=== PATIENT | male | born 1955 | race Caucasian/White ===

== ENCOUNTER 2018-08-15 14:51 | Observation (INO) ==
[2018-08-15] MEDS ORDERED: ZOFRAN ODT ONE (15:02)
[2018-08-15] MEDS ORDERED: ASPIRIN PO ONE (15:06)
[2018-08-15] MEDS ORDERED: ZOFRAN ODT PO ONE (15:08)
--- NOTE | 2018-08-15 15:10 | EKG Report ---
Test Performed on : 08/15/2018 3:00:04 PM Test Reason : SYNCOPE Blood Pressure : / mmHG Vent. Rate : 069 BPM Atrial Rate : 069 BPM P-R Int : 230 ms QRS Dur : 096 ms QT Int : 404 ms P-R-T Axes : 035 014 038 degrees QTc Int : 432 ms Sinus rhythm. with 1st degree AV block. Incomplete right bundle branch block Borderline ECG When compared with ECG of 15-APR-2018 19:20, Incomplete right bundle branch block is now present QT has lengthened Unconfirmed Result
[2018-08-15 15:40] LABS: BASO# 0.02 X1000 (0.0-0.2); BASO% 0.3 % (0.0-0.8); EOS# 0.08 X1000 (0.0-0.7); EOS% 1.2 % (0.0-10.0); HEMATOCRIT 42.2 % (42.0-52.0); HEMOGLOBIN 14.5 g/dL (14.0-18.0); LYMPH# 1.89 X1000 (1.2-3.4); LYMPH% 27.5 % (20.5-51.1); MCH 30.7 PG (27-31); MCHC 34.4 g/dL (33-37); MCV 89.4 FL (81-99); MONO# 0.48 X1000 (0.11-0.59); MPV 8.8 FL (7.4-10.4); PLT 206 X1000 (130-400); RBC 4.72 XMIL (4.7-6.1); RDW 11.9 % (11.5-14.5); WBC 6.87 X1000 (4.8-10.8)
[2018-08-15 15:46] LABS: INR 0.94; PROTIME 13.3 Seconds (11.0-16.0); PTT 23.7 Seconds (22.3-41.8)
--- NOTE | 2018-08-15 15:58 | Diag Imaging Result Doc PS360 ---
CHEST-2 VIEWS - 08/15/2018 INDICATION: SYNCOPE COMPARISON: 04/15/2018 FINDINGS: The lungs are normally expanded and clear. Heart size and mediastinal contours are normal. No pneumothorax or pleural effusion. IMPRESSION: Negative exam. Electronically signed by Андрей Kilgore 08/15/2018 3:56 PM
[2018-08-15 16:06] LABS: AGAP 12; ALB/GLOB RATIO 1.6; ALBUMIN 4.3 g/dL (3.5-5.0); ALKALINE PHOSPHATASE 76 U/L (32-122); BUN 13 mg/dL (8-22); CALCIUM 9.8 mg/dL (8.8-10.2); CHLORIDE 105 mmol/L (98-107); CK PROFILE 126 U/L (24-204); COSMO 283; CREATININE 0.8 mg/dL (0.7-1.2); ESTIMATED GFR > 60; GLUCOSE 124 mg/dL (70-104); GOT 19 U/L (10-34); GPT 19 U/L (10-44); POTASSIUM 3.9 mmol/L (3.5-5.1); SODIUM 141 mmol/L (136-145); TCO2 24 mmol/L (25-35); TOTAL BILIRUBIN 0.34 mg/dL (0.20-1.00)
[2018-08-15] MEDS ORDERED: NS 1,000 ML IV ONE (16:40)
--- NOTE | 2018-08-15 18:16 | PROVIDER DOCUMENTATION ---
This chart was entered by Mali Escobedo Scribe, acting as scribe for Ric Villa CRNP. HPI-Syncope/Dizziness - General Chief Complaint: Syncope Stated Complaint: SYNCOPE / SWEATING / SOB Time Seen by Provider: 08/15/18 15:38 Source: patient Allergies/Adverse Reactions: Patient Allergies Allergy/AdvReac Type Severity Reaction Status Date / Time No Known Allergies Allergy Verified 04/15/18 20:26 Home Medications: Home Medication List Medication Instructions Recorded Confirmed Last Taken Type Omeprazole [Prilosec] 20 mg PO DAILY@0700 03/27/17 04/15/18 Unknown History Aspirin 81 mg PO DAILY 04/15/18 04/15/18 Unknown History Meclizine [Antivert] 12.5 mg PO Q8H #10 tab 04/15/18 Unknown Rx - History of Present Illness-Syncope/Dizzy Nature of Presenting Problem: 63 yowm presents to the ed with c/o syncope while at work today. sts when he woke up his tablet was on the floor and he was nauseated, diaphoretic, and has weakness. pt sts had similar episode in March and f/u with cardio. pt had echo and and stress test both were negative. Prior Episodes: reports: remote history (had episode in march as well) Onset/Duration: reports: this afternoon Timing: reports: improving Position/Activity at time of episode: reports: sitting Symptoms prior to episode: reports: nausea/vomiting, diaphoresis. denies: headache, lightheaded, visual disturbance, chest pain, racing heart, abdominal pain, back pain, recent head trauma, rapid heart beat Context: reports: lost consciousness. denies: incontinent of urine, incontinent of stool Loss of Consciousness: prolonged (minutes) (1 minute) Current Symptoms: reports: sweaty, nausea, weakness. denies: short of breath, abdominal pain, vomiting, shoulder pain, headache, blurred vision, lightheaded Similar symptoms previously: reports: workup for same problem Recently Seen Here or By Another Healthcare Provider: No Review of Systems - Adult - REVIEW OF SYSTEMS - ADULT Constitutional: denies: chills, fever Eyes: denies: blurred vision, double vision Ears, Nose, Mouth & Throat: reports: no symptoms reported Cardiovascular: reports: syncope. denies: chest pain, palpitations Respiratory: reports: shortness of breath. denies: cough, wheezing Gastrointestinal: reports: nausea. denies: abdominal pain, diarrhea, vomiting Genitourinary: reports: no symptoms reported Musculoskeletal: reports: see HPI, muscle weakness. denies: back pain, neck pain Integumentary: reports: no symptoms reported Neurological: reports: syncope. denies: dizziness/vertigo, headache/migraines, loss of balance, numbness, paresthesia, slurred speech Psychiatric: reports: no symptoms reported Endocrine: reports: no symptoms reported Hematologic/Lymphatic: reports: no symptoms reported Allergic/Immunologic: reports: no symptoms reported All Other Systems: Reviewed and Negative Past History - Adult - PAST MEDICAL HISTORY-ADULT Review of Records: reports: Old Records Reviewed, Nursing Assessment Review, Medications Reviewed, Social history reviewed & non-contributory. Major Childhood Illnesses: reports: denies history Cardiovascular: reports: denies history Respiratory: reports: denies history Gastrointestinal: reports: denies history Genitourinary: reports: denies history Musculoskeletal: reports: denies history Hand Dominance: Right Handed Neurological: reports: denies history Endocrine/Immune: reports: denies history Other Conditions: reports: denies history - PRIOR SURGERIES/PROCEDURES Surgical/Procedure History: reports: other (sinus sx) - IMMUNIZATION STATUS Childhood Immunizations: See Nurse Assessment Flu Vaccine: See Nurse Assessment - FAMILY HISTORY Family History: reviewed, not pertinent - SOCIAL HISTORY Smoking: denies Substance Use: alcohol Alcohol Use Frequency: occasionally Number of drinks per typical drinking period:: 3-4 drinks Living Situation: family Physical Exam-General - PHYSICAL EXAM-ADULT Initial Vital Signs Reviewed: Yes - CONSTITUTIONAL General Appearance: alert, mild distress. negative: appears well - EYES Eyes: PERRL/EOMI, pale conjunctivae - HEAD, EARS, NOSE, MOUTH & THROAT HENMT: moist mucous membranes, normal ENT inspection - NECK Neck: full range of motion, supple, normal inspection - RESPIRATORY Respiratory: chest non-tender, lungs clear, normal breath sounds - CARDIOVASCULAR Cardiovascular: normal peripheral pulses, regular rate, rhythm - GASTROINTESTINAL (ABDOMEN) Abdominal Exam: normal bowel sounds, non tender, soft - LYMPHATIC Lymphatic: no adenopathy - MUSCULOSKELETAL Back Exam: normal inspection, no CVA tenderness, no vertebral tenderness Extremity: normal range of motion, normal gait, normal inspection, no pedal edema, no calf tenderness, normal capillary refill - SKIN Integumentary: normal turgor, diaphoresis, pallor - NEUROLOGIC Neurologic: grossly normal, no motor/sensory deficits - PSYCHIATRIC Psych/Mental Status: normal mood/affect, normal thought content, normal thought process, oriented x 3 Progress - PLAN OF CARE/RESULTS Progress/Plan/Lab Results: Vital Signs - 8 hr 08/15/18 14:56 08/15/18 16:15 Temperature 97.5 F L Pulse Rate 74 Pulse Rate [Sitting] 67 Pulse Rate [Standing] 75 Pulse Rate [Supine] 65 Respiratory Rate 18 Blood Pressure 131/86 Blood Pressure [Sitting] 157/103 Blood Pressure [Standing] 142/92 Blood Pressure [Supine] 147/80 O2 Sat by Pulse Oximetry 96 Laboratory Results - last 24 hr 08/15/18 08/15/18 08/15/18 15:10 15:10 15:10 WBC 6.87 RBC 4.72 Hgb 14.5 Hct 42.2 MCV 89.4 MCH 30.7 MCHC 34.4 RDW Std Deviation 11.9 Plt Count 206 MPV 8.8 Immature Gran % (Auto) 0.0 Neut % (Auto) 64.0 Lymph % (Auto) 27.5 [place] % (Auto) 7.0 Eos % (Auto) 1.2 Baso % (Auto) 0.3 Immature Gran # (Auto) 0.00 Neut # (Auto) 4.40 Lymph # (Auto) 1.89 [place] # (Auto) 0.48 Eos # (Auto) 0.08 Baso # (Auto) 0.02 PT INR PTT (Actin FS) D-Dimer, Quantitative Sodium 141 Potassium 3.9 Chloride 105 Carbon Dioxide 24 L Anion Gap 12 BUN 13 Creatinine 0.8 Estimated GFR/1.73 m2 > 60 BUN/Creatinine Ratio 16 Glucose 124 H Calculated Osmolality 283 Calcium 9.8 Total Bilirubin 0.34 AST 19 ALT 19 Alkaline Phosphatase 76 Creatine Kinase 126 Troponin T Btk-Z-Swoxbudmhtc Pept 9 Total Protein 7.0 Albumin 4.3 Globulin 2.7 Albumin/Globulin Ratio 1.6 08/15/18 08/15/18 08/15/18 15:10 15:10 15:10 WBC RBC Hgb Hct MCV MCH MCHC RDW Std Deviation Plt Count MPV Immature Gran % (Auto) Neut % (Auto) Lymph % (Auto) [place] % (Auto) Eos % (Auto) Baso % (Auto) Immature Gran # (Auto) Neut # (Auto) Lymph # (Auto) [place] # (Auto) Eos # (Auto) Baso # (Auto) PT 13.3 INR 0.94 PTT (Actin FS) 23.7 D-Dimer, Quantitative 0.41 Sodium Potassium Chloride Carbon Dioxide Anion Gap BUN Creatinine Estimated GFR/1.73 m2 BUN/Creatinine Ratio Glucose Calculated Osmolality Calcium Total Bilirubin AST ALT Alkaline Phosphatase Creatine Kinase Troponin T < 0.010 Bve-P-Uhyrmrrituj Pept Total Protein Albumin Globulin Albumin/Globulin Ratio Orders Category Date Time Status Cardiac Monitoring DIRECTED Care 08/15/18 15:07 Active Oxygen Therapy- ED Nursing DIRECTED Care 08/15/18 15:07 Active Saline Loc NOW Care 08/15/18 15:07 Active CHEST-2 VIEWS [RAD] Stat Exams 08/15/18 15:07 Completed CBC WITH ELECTRONIC DIFF [HEME] Stat Lab 08/15/18 15:10 Completed CK PROFILE [SP CHEM] Stat Lab 08/15/18 15:10 Completed COMPREHENSIVE METABOLIC PANEL [CHEM] Stat Lab 08/15/18 15:10 Completed D-DIMER [COAG] Stat Lab 08/15/18 15:10 Completed PRO B-NATRIURETIC PEPTIDE Stat Lab 08/15/18 15:10 Completed PROTIME WITH INR [COAG] Stat Lab 08/15/18 15:10 Completed PTT [COAG] Stat Lab 08/15/18 15:10 Completed TROPONIN T Stat Lab 08/15/18 15:10 Completed 0.9% Sodium Chloride Inj [Ns] 1,000 ml Med 08/15/18 16:40 Discontinued IV 999 mls/hr Aspirin Med 08/15/18 15:06 Discontinued 325 mg PO NOW ONE Ondansetron Odt [Zofran Odt] Med 08/15/18 15:02 Discontinued 4 mg .ROUTE .STK-MED ONE Ondansetron Odt [Zofran Odt] Med 08/15/18 15:08 Discontinued 4 mg PO NOW ONE CP/SOB/Palp >45 yrs of Age Stat Oth 08/15/18 15:06 Ordered EKG [EKG] Stat Ther 08/15/18 15:07 Draft Result Diagrams: 08/15/18 15:10 08/15/18 15:10 - REASSESSMENT Reassessment #1 Time Reassessed: 16:42 (In room to discussed results and consult with Dr Gayle. Pt states he has a flush feeling, HR decrease from 68 to 48bpm while in room. ) Reassessment #2 Time Reassessed: 16:53 (Dr Allan and myself in room to reassess pt. Dr Janet Gayle in [facility]. Dr Allan and myself spoke with Dr Gayle explained bradycardia event. States he feels like pt is ok to d/c home and he will see pt in the office. Pt and family made aware of this. ) Reassessment #3 Time Reassessed: 17:45 (spoke with Dr Allan regarding neg d-dimer. Suggests calling hospitalist for admission. Pt states they do not feel comfortable with pt going home.) Reassessment #4 Time Reassessed: 18:16 (pt and fmaily updated on admission status. Agree with plan.) - EKG 1 Time of EKG reading by physician:: 15:00 EKG Read and Signed by:: Chuy Allan EKG Interpretation (*Must complete 3 of following elements*): Normal (borderline ) Rate: 69 Rhythm: inus rhythm with 1st degree AV block [place]: normal QRS: RBB (incomplete) VT Interval: normal ST Wave: normal - XRAY 1 XRAY: Bilateral XRAY Study: Chest Impression: See EMR Report (CHEST-2 VIEWS - 08/15/2018 INDICATION: SYNCOPE COMPARISON: 04/15/2018 FINDINGS: The lungs are normally expanded and clear. Heart size and mediastinal contours are normal. No pneumothorax or pleural effusion. IMPRESSION: Negative exam. Electronically signed by Андрей Kilgore 08/15/2018 3:56 PM 08/15/18 1550 Interpreting Physician: Андрей Kilgore MD Dictated Date/Time: 08/15/18 1555 cc: Chuy Allan MD;) - CONSULTS/PCP/HOSPITALIST Notification #1 *Consult/PCP/Hospitalist*: dr janet gayle cardio Time Discussed: 16:29 (Reported lab values and EKG findings to Dr Gayle. States pt had an extensive w/u in Nov including echo and stress test which were negative. Feels this is not cardiac related. Suggests d/c home and have f/u in his office for heart monitor) Reason/Comments: phone consult Consult Disposition: F/U in office #2 Consult: Dr Prieto, hospitalist Time Discussed: 18:08 Consult Disposition: Admit Departure - Departure Date of Disposition Decision: 08/15/18 Time of Disposition Decision: 18:09 DIAGNOSIS: Syncope Qualifiers: Syncope type: vasovagal syncope Qualified Code(s): R55 - Syncope and collapse Disposition: ADMITTED INPATIENT 09 Certified Medical Emergency: Emergent Condition: Fair Referrals and Follow-Ups: Carlos Bucio MD [Primary Care Provider] - - Critical Care Note This patient required my direct & personal management of CC.: No Attestation - Physician/ ARIES Attestation Patient care was provided by Advanced Practice Provider:: Yes Advanced Practice Provider:: Ric Villa Advanced Practice Provider documentation review:: The Mid-level provider documentation, treatment plan and medical decision making was reviewed by the physician who agrees with all treatment and medical decision making by the MLP. The physician spent face to face time with patient:: Yes Advanced Practice Provider documentation review:: Supervising physician onsite and consulted in the evaluation and care of this patient. The physician did have a face to face encounter with the patient. This chart was documented by the indicated scribe, (Mali Escobedo Scribe) and accurately reflects the services I performed and decisions made by me, Ric Villa CRNP, as attested by the provider's signature.
[2018-08-15] MEDS ORDERED: G.I. COCKTAIL PO ONE (18:50)
[2018-08-15] MEDS ORDERED: PEPCID PO ONE (18:51)
--- NOTE | 2018-08-15 19:51 | HISTORY AND PHYSICAL ---
Patient of Dr. Carlos Bucio. REASON FOR ADMISSION: Syncopal episode today. HISTORY OF PRESENT ILLNESS: Mr. Lehman is a 63-year-old man with past medical history of heartburn. He reports that while he was at his desk at work he became profoundly sick to his stomach, diaphoretic, and he said that his sensorium was cloudy. He said he could not focus on what he was reading off his I pad and the next thing he knew he passed out. He denied antecedent chest pain or palpitations with this. No history of leg swelling, PND, orthopnea. No cough, fever, or chills. The patient could not state how long he was out for but he estimates it might have been a few minutes. When he came to he was alone in his room slumped backwards in his chair and his I pad was on the floor. He said he felt profoundly weak. He said prior to this event he had just gone to the bathroom to relieve himself and one of his coworkers who is at the bedside said he noticed that the patient looked pale, diaphoretic, and sickly prior to him going into his office. The patient has been in the ER. He says he still feels a little queasy and had a very similar episode, but did not pass out, i.e. increased diaphoresis, transient confusion, and nausea. When it did occur his heart rate went down into the 40s. It is now back in the 50s. He has had several mild episodes when he walks or sitting down, he gets diaphoresis, nausea , and transient cloudy consciousness. One other time he almost passed out while he was walking. He says these spells have been increasing over the last few months. REVIEW OF SYSTEMS: Other than heartburn, twelve system review was negative. FAMILY HISTORY: Mother had a pacemaker for, I believe, atrial fibrillation. His daughter has a bicuspid valve and has had a few syncopal episodes. Mother also has thyroid disease. SURGICAL HISTORY: Negative for surgery. SOCIAL HISTORY: Does not smoke, drink, or use drugs. He is . Works as a indirect sales representative. ALLERGIES: Poison loren. MEDICATIONS: He only takes omeprazole as needed and he is taking baby aspirin once a day and meclizine p.r.n. LAB WORK: EKG showed normal sinus rhythm with incomplete right bundle branch block and first degree AV block. White count 6,000. Hemoglobin and hematocrit 14 and 42. Platelet count 206. Normal differential. BUN is 13. Creatinine is 0.8. Glucose 124. Troponin negative. CK is normal. D dimer and PTT is normal. IMAGING: Chest film with normal cardiopulmonary chest film. PHYSICAL EXAMINATION: VITAL SIGNS: Blood pressure 131/86, heart rate 74, temperature 97.5, respiratory rate 18, 96% on room air. GENERAL: He is a middle-aged man who is not in acute distress. He is alert and oriented to person, place, and time. He has a somewhat sad affect and depressed mood. HEENT: Head is normocephalic, atraumatic. Eyes: PERRL. EOMI. He is anicteric , not pale. ENT and oropharynx exams grossly normal. NECK: Supple. No JVD. No carotid bruit. No thyromegaly. CHEST: Clear when auscultated with good air entry in both lung leone. CARDIOVASCULAR: First and second heart sounds are heard. Second heart sounds appear to be somewhat split. No gallops, murmurs or rubs. Rhythm is regular. ABDOMEN: Protuberant. Soft. Nontender. No masses or megaly. Bowel sounds are normal. RECTAL: Exam deferred at this time. EXTREMITIES: Patient has very good 2+ distal pulses in all extremities, symmetrical and regular. No edema, clubbing, or peripheral cyanosis. NEUROLOGICAL: No focal deficits. No tremors. MUSCULOSKELETAL: Exam is grossly normal. SKIN: Intact. No breakdown, lesion, or erythema. Good turgor. LYMPH NODE EXAM: Negative. ASSESSMENT: Vasovagal syncope secondary to first-degree atrioventricular block and incomplete bundle branch block. Etiology of this is yet to be determined. Echocardiogram will be ordered to rule out coexisting and possible valvular disease. Order upper gastrointestinal series in light of patient's complaints of severe heartburn. It is possible patient may have large sliding hiatal hernia which may impinge on the left atrium, which is anterior to the hernia, and induce all kinds of arrhythmias. Will consult Dr. Inderjit Gayle, collar tacker, to see patient. The patient will be monitored on telemetry system. If there is no abnormality, the patient may benefit from an event monitor. The patient is also a very active middle-aged man. He goes to the gym. When he exerts himself he says he has no symptoms whatsoever. He was also orthostatic when he came in. In the interim the patient will be treated symptomatically. If he becomes mildly bradycardic, may consider giving him a trial of breathing treatment or more severe intravenous atropine. cc: Saul Ramirez MD MTDD
[2018-08-15] MEDS ORDERED: TYLENOL PO PRN (19:56)
[2018-08-15] MEDS ORDERED: ZOFRAN IV PRN (19:56)
--- NOTE | 2018-08-16 07:25 | EKG Report ---
Test Performed on : 08/16/2018 07:08:36 AM Test Reason : syncope Blood Pressure : / mmHG Vent. Rate : 055 BPM Atrial Rate : 055 BPM P-R Int : 222 ms QRS Dur : 098 ms QT Int : 414 ms P-R-T Axes : 036 017 031 degrees QTc Int : 396 ms Sinus bradycardia. with 1st degree AV block. Otherwise normal ECG When compared with ECG of 15-AUG-2018 15:00, (Unconfirmed) Incomplete right bundle branch block is no longer present Unconfirmed Result
[2018-08-16 08:12] LABS: BASO# 0.01 X1000 (0.0-0.2); BASO% 0.2 % (0.0-0.8); EOS# 0.06 X1000 (0.0-0.7); HEMATOCRIT 43.2 % (42.0-52.0); HEMOGLOBIN 14.4 g/dL (14.0-18.0); LYMPH# 1.62 X1000 (1.2-3.4); LYMPH% 27.2 % (20.5-51.1); MCH 30.3 PG (27-31); MCHC 33.3 g/dL (33-37); MCV 90.9 FL (81-99); MONO# 0.45 X1000 (0.11-0.59); MONO% 7.6 % (1.7-9.3); MPV 8.7 FL (7.4-10.4); NEUT# 3.82 X1000 (1.4-6.5); PLT 191 X1000 (130-400); RBC 4.75 XMIL (4.7-6.1); RDW 12.1 % (11.5-14.5); WBC 5.96 X1000 (4.8-10.8)
[2018-08-16 08:28] LABS: AGAP 8; BUN 12 mg/dL (8-22); CALCIUM 9.3 mg/dL (8.8-10.2); CHLORIDE 108 mmol/L (98-107); COSMO 283; CREATININE 0.8 mg/dL (0.7-1.2); ESTIMATED GFR > 60; GLUCOSE 92 mg/dL (70-104); SODIUM 142 mmol/L (136-145); TCO2 26 mmol/L (25-35)
[2018-08-16] MEDS ORDERED: ASPIRIN PO SCH (09:00)
--- NOTE | 2018-08-16 12:34 | ECHO REPORT ---
ORDER DATE: 08/15/2018 INDICATION: Presyncope, relative bradycardia. FINDINGS: This is a limited study. 1. There is no evidence of mitral valve prolapse. Limited Doppler evaluation of the mitral valve. 2. Normal LV size with an end-diastolic dimension of 4.2 cm. Mild left ventricular hypertrophy with a posterior and interventricular septal wall thickness 1.2 cm each. Normal LV systolic function. The estimated EF is 65%. 3. Right ventricle appears to be normal in size with normal systolic function. 4. Aortic valve opens well. It is trileaflet. There is no evidence of stenosis or insufficiency on this study. 5. No pericardial effusion was identified on this study. 6. The aorta appears normal in visualized segments. 7. Patient's heart rate appeared to be primarily in the low to mid 60s during this study with sinus mechanism. cc: MD Saul Velasquez MD
--- NOTE | 2018-08-16 13:51 | Diag Imaging Result Doc PS360 ---
EXAM: GI SERIES WITH BA SWALLOW INDICATION: dyspepsia hiatal hernia TECHNIQUE: Oral barium contrast was administered and the bolus was followed under fluoroscopy. Spot images were obtained. COMPARISON: None. FINDINGS: The esophagus appears normal in course, caliber, contour, and mucosal relief. No esophageal stricture or ulceration is identified. There is a very small sliding hiatal hernia. During the study, no gastroesophageal reflux was witnessed. The stomach exhibited normal rugal folding patterns. No ulceration or gastric filling defect is identified. Barium passed readily into the small bowel. The duodenal sweep is unremarkable. IMPRESSION: Very small sliding hiatal hernia. Unremarkable barium upper GI, otherwise. Electronically signed by Marques Ware 08/16/2018 1:48 PM
--- NOTE | 2018-08-16 14:23 | DISCHARGE SUMMARY ---
ADMISSION DATE: 08/15/2018 DISCHARGE DATE: 08/16/2018 DISCHARGE DIAGNOSES: 1. Syncope secondary to severe bradycardia. 2. Hiatal hernia. CONSULTATION: Dr. Orr from Cardiology. PROCEDURES: 1. X-ray done on admission showed negative exam. 2. Echocardiogram limited view showed an ejection fraction of 65% with no evidence of mitral valve prolapse. Normal LV size with end-diastolic dimension of 4.2 cm. Right ventricle appears normal in size. 3. Upper GI barium swallow showed a small sliding hiatal hernia with otherwise unremarkable barium upper GI. HOSPITAL COURSE: In brief, this is a 63-year-old male with past medical history of GERD who presented to the emergency department because he had an episode of syncope. The patient does not remember the episode. He was feeling somewhat dizzy. He does not know for how long he has been unconscious. He was brought over here. We consulted cardiology because of symptoms suggestive of syncope secondary to bradycardia. On telemetry, it was noted that this patient has a pulse of over 30 seconds that happened at least 2 to 3 times, and the patient had an episode of syncope in the hospital so Cardiology has decided to send this patient to [facility] for pacemaker placement. All arrangements have been made. The patient is going to be transferred to another hospital in stable condition. cc: James Zamudio MD MTDD
[2018-08-16 15:27] VITALS: BP 143/77
== END 2018-08-16 15:25 | disposition short-term general hospital (02) ==
LOC: ED 14:51 → EDIPHOLD 19:22 → SUATTDRO 19:22 → INTOOBSV 19:22 → 3N 20:05
PROVIDERS: ATTEND Internal Medicine
CPT/HCPCS: 71020; 71046; 74246; 80048; 80053; 82550; 82948; 83880; 84443; 84484; 85025; 85379; 85610; 85730; 93005; 93306; 93308; 99285; A9270; J7030; XXXXX